=== PATIENT | female | born 1950 | race Caucasian/White ===

== ENCOUNTER 2016-12-13 12:25 | Emergency (ER) | payer OTHER ==
[2016-12-13 13:38] LABS: HEMOGLOBIN 14.3 gm/dl (12.3-15.3); RED BLOOD COUNT 4.84 M/UL (4.00-5.10); WHITE BLOOD COUNT 11.9 K/UL (4.5-11.0)
[2016-12-13 14:00] LABS: BUN/CREATININE RATIO 21 (0-10)
== END 2016-12-13 16:34 | disposition short-term general hospital (02) ==
LOC: ER1 12:25
PROVIDERS: Physician Assistant
DX: M54.5 Low back pain (principal); R29.818 Other symptoms and signs involving the nervous system; R11.0 Nausea; Z88.2 Allergy status to sulfonamides
CPT/HCPCS: 36415; 80053; 81001; 85025; 96374; 96375; 96376; 99284; J1100; J2270; J2405